=== PATIENT | female | born 1990 | race Caucasian/White ===

== ENCOUNTER 2019-10-06 05:39 | Outpatient (CLI) | payer OTHER ==
[~2019-10-06] VITALS: Ht 160 cm; Wt 61.0 kg
[2019-10-06] MEDS ORDERED: BUSP5TAB59 PO (14:42)
[2019-10-06] MEDS ORDERED: NORG1TAB15 PO (14:42)
[2019-10-06] MEDS ORDERED: ESCI5TAB PO (14:42)
[2019-10-06] MEDS ORDERED: BREX2TAB PO (14:42)
== END 2019-10-06 14:50 | disposition home or self-care (01) ==
LOC: PREOP 05:39
PROVIDERS: ATTEND Obstetrics & Gynecology
DX: Z01.818 Encounter for other preprocedural examination (principal)

== ENCOUNTER → 2020-10-11 | Outpatient (CLI) | payer OTHER ==
[~2020-10-11] MED LIST: BREX2TAB PO; BUSP5TAB59 PO; ESCI5TAB PO; IBUP-1780 PO; NORG1TAB15 PO; OXYC1TAB87 PO
--- NOTE | 2020-10-11 13:34 | Diagnostic Imaging Report ---
PROCEDURE: CT head without contrast. TECHNIQUE: Multiple contiguous axial images were obtained through the brain without the use of intravenous contrast. Auto Exposure Controls were utilized during the CT exam to meet ALARA standards for radiation dose reduction. INDICATION: Concussion headache. COMPARISON: None. FINDINGS: Ventricles are normal in size, shape and position. There is no midline shift or mass effect. There is no hemorrhage or evidence of acute ischemia. No extra-axial fluid collection or mass is seen. There is no skull fracture. Paranasal sinuses and mastoids are clear IMPRESSION: Negative CT head. Dictated by: Dictated on workstation # [id number]
== END ==
LOC: RAD 13:04
PROVIDERS: ATTEND Family Medicine
DX: S06.0X9A Concussion with loss of consciousness of unspecified duration, initial encounter (principal); F22 Delusional disorders; Z87.820 Personal history of traumatic brain injury
CPT/HCPCS: 70450

== ENCOUNTER 2022-07-01 14:58 | Outpatient (RCR) | payer BC | END 2022-07-09 | disposition home or self-care (01) | PROVIDERS: ATTEND Nurse Practitioner | DX: M70.98 Unspecified soft tissue disorder related to use, overuse and pressure other (principal) ==